=== PATIENT | male | born 1980 | race Caucasian/White ===

== ENCOUNTER 2017-12-12 19:22 | Emergency (ER) | payer MEDICAID, SELFPAY ==
[2017-12-12 19:28] VITALS: BP 125/75; PULSE 91; RESP 16; TEMP 36; O2SAT 96
--- NOTE | 2017-12-12 20:04 | DI.RAD_ITS ---
SYMPTOMS/DIAGNOSIS: S/P FALL, ? ACUTE FRACTURE LEFT WRIST: Three views. No priors. There is a sideplate and screws transfixing an old healed distal left radial fracture. No acute fracture or dislocation is seen. The orthopedic hardware appears well maintained. There are mild degenerative changes seen in the wrist. There is a well corticated osseous fragment seen at the tip of the ulnar styloid process likely reflecting an old injury. IMPRESSION: No acute fracture or dislocation.
--- NOTE | 2017-12-12 20:04 | DI.CT_ITS ---
SYMPTOMS/DIAGNOSIS: H/O LUMBAR HERNIATED DISC, RT LEG WEAKNESS CT SCAN OF THE LUMBAR SPINE: Multiple contiguous axial images of the lumbar spine were obtained. Sagittal and coronal reformatted images were evaluated on the [employer] workstation. At L 5 - S 1 there is a diffuse disc bulge present. There does appear to be a right paracentral disc herniation which may impinge upon the right S 1 nerve root. No significant central spinal canal stenosis is seen. No neural foraminal stenosis is present. At L 4 - 5 there is a broad based disc bulge but no focal disc herniation, central spinal canal or neural foraminal stenosis is seen. No nerve root impingement is identified. At L 2 - 3 and L 1 - 2 there is no focal disc herniation, central spinal canal or neural foraminal stenosis. No acute fracture or subluxation is identified. The soft tissues are unremarkable. IMPRESSION: Right paracentral disc protrusion at L 5 - S 1 which may impinge upon the right S 1 nerve root. MRI should be considered for further evaluation.
--- NOTE | 2017-12-12 20:08 | W.ED.GENAD ---
Discharge Plan Disposition Patient Disposition: HOME Condition: Stable Discharge Details Chief Complaint: Orthopedic Clinical Impression: Chronic back pain, Fall, Leg pain, Left wrist pain Primary Care Provider: Robert Wheatley ED Provider: Ileana Powell Home Meds and New Rx's Prescriptions: Continue citalopram 40 MG tablet 40 mg PO DAILY AM RF: 0 cyclobenzaprine 10 MG tablet 10 mg PO TID RF: 0 clonazepam 0.5 MG tablet 0.5 mg PO BID RF: 0 meloxicam 7.5 MG tablet 7.5 mg PO DAILY RF: 0 mirtazapine [Remeron] 15 MG tablet 15 mg PO HS RF: 0 Melatonin/Pyridoxine [Melatonin 5 mg Tablet] 1 EACH Tablet 2 ea PO HS RF: 0 cyproheptadine 4 mg Tablet 2 tab PO HS RF: 0 oxycodone-acetaminophen 10-325 mg Tablet 1 tab PO DIRECTED RF: 0 Discharge Data Discharge Date/Time-TO BE ENTERED AT DEPARTURE: 12/12/17 21:24 Medical Decision Making <Ileana Powell DO - Last Filed: 12/28/17 10:18> 37-year-old male with a history of lumbar disc herniation with L4-5 [address]cectomy [address] Koffi Adame at [facility] who presents with a history of right leg giving out while standing while urinating at home prior to arrival. He is c/o R knee/leg pain and R foot numbness and L wrist pain. He has chronic lower back pain and and L thigh pain and chronic urinary hesistancy. No other acute cauda equina symptoms. Vitals within normal limits. Chest and abdomen nontender. Normal exam. He has tenderness to palpation of midline and bilateral lumbar paraspinal region. No focal deficits of lower extremities. No pelvis instability or pain in hips with range of motion. Straight leg raise negative bilaterally. Neurovascular intact bilateral lower extremities. Discussed with patient that as he has no acute focal deficits on exam tonight, his right leg may have given out due to pain or weakness but may not be due to an acute neurological concern. Offered a CT lumbar spine for evaluation but discussed that this is not as diagnostic as MRI for disc herniation and patient would like this done. He is also requesting a left wrist x-ray. We will also obtain a bladder scan, give a dose of Toradol and Valium. 1999 --he declined dose of toradol. 2013 --case endorsed to Dr. Truong to follow-up on imaging results and patient response to meds. Bladder scan 157. <Jared Truong MD - Last Filed: 12/12/17 21:20> Received signout from Dr. Powell. Please see her note regarding details of presentation, exam, plan of care. Patient CTs images showed disc bulge at L5-S1. He did not have any fractures on wrist radiograph. He complained to me primarily of ongoing left wrist pain, that he had missed his evening medications, and that he had plans to follow-up with neurosurgery for ongoing right low back pain. Is ambulatory with no complaints of weakness or change to urination. Did not have a significant postvoid residual. Given his evening medications. We will also allow him to have a left wrist splint. He is stable for outpatient management. HPI <Ileana Powell DO - Last Filed: 12/28/17 10:18> General Mode of arrival: ambulatory. Date/Time Provider Initiated Documentation: 12/12/17 19:25. Limitations to Documentation: no limitations. Information obtained by: patient. HPI Narrative: Patient is a 37-year-old male who is 1 year s/p L4-5 discectomy and 4 months s/p L wrist ORIF s/p fx who presents with a complaint of right leg giving out while standing urinating resulting in fall into tub now with with right leg pain extending from knee down to leg and right foot numbness. He states he also hit his L wrist and L ribs when he fell into the tub and has wrist pain but no rib pain. Patient admits to a history of chronic lower back pain and L4-5 disc herniation for which he had the L4-5 discectomy at [facility] 1 year ago. Patient states he was recommended to have a lumbar fusion. Patient states he has chronic midline lumbar and right-sided lower back pain with extension into left thigh but normally does not have right leg pain or weakness or numbness. He denies chronic left leg weakness or numbness. He states he occasionally has difficulty urinating with hesistancy but this is not new since before his back surgery. He denies fever, nausea, vomiting, chest pain, shortness of breath, abdominal pain, urinary or fecal incontinence, saddle anesthesia. Patient states he takes 10 mg of oxycodone prn daily and last took this at 2 PM today. Patient states he called his PCP at [facility] and Dr. Bustos was phone operator who advised that he come to the emergency department for evaluation and if needed for transfer to [facility] for MRI. Past medical history: Kidney stones Surgical history: Appendectomy, bilateral ulnar nerve transfer, small bowel obstruction 1982, left wrist ORIF 2017 Social history: Smokes tobacco, denies alcohol or drugs Medications: See list Allergies: Penicillin, tramadol, prednisone, codeine PCP: Dr. Bustos Related Data Home Medications Medication Instructions Recorded Confirmed Melatonin/Pyridoxine [Melatonin 5 2 ea PO HS 08/14/16 12/12/17 mg Tablet] citalopram 40 mg PO DAILY AM 08/14/16 12/12/17 clonazepam 0.5 mg PO BID 08/14/16 12/12/17 cyclobenzaprine 10 mg PO TID 08/14/16 12/12/17 meloxicam 7.5 mg PO DAILY 08/14/16 12/12/17 mirtazapine [Remeron] 15 mg PO HS 08/14/16 12/12/17 cyproheptadine 2 tab PO HS 12/12/17 oxycodone-acetaminophen 1 tab PO DIRECTED 12/12/17 12/12/17 Allergies Allergy/AdvReac Type Severity Reaction Status Date / Time Penicillins Allergy Severe Anaphylaxsi Unverified 12/12/17 19:38 s prednisone AdvReac Intermediate Diarrhea Unverified 12/12/17 19:38 tramadol AdvReac Intermediate Other (See Unverified 12/12/17 19:38 Comment) codeine AdvReac Mild Hives Unverified 12/12/17 19:38 General Stated Complaint: Orthopedic ADELFO: 3 Review of Systems <Ileana Powell DO - Last Filed: 12/28/17 10:18> Constitutional Reports as per HPI, Denies chills and Denies fever(s) Eyes Denies blurry vision ENT Denies dizziness, Denies sore throat and Denies throat swelling Cardiovascular Denies chest pain and Denies dyspnea Respiratory Denies dyspnea Gastrointestinal Denies abdominal pain, Denies diarrhea and Denies vomiting Genitourinary Denies hematuria and Denies dysuria Musculoskeletal Reports back pain and Reports numbness Integumentary/Breasts Denies lesions and Denies rash Neurologic Denies dizziness, Reports focal weakness, Reports numbness, Reports radicular pain and Reports paresthesias Allergic/Immunologic Denies throat swelling Exam <Ileana Powell, - Last Filed: 12/28/17 10:18> Const General: cooperative and healthy appearing Orientation: alert and awake [facility] Head: normal to inspection Ears: hearing grossly normal bilaterally and external ears normal Face and sinus: normal facial exam Eyes General: appearance normal, both eyes and all related structures Eyelids: eyelids normal EOM: EOM intact bilaterally Neck Neck: normal visual inspection Lymphatic: no lymphadenopathy noted Chest Chest: normal inspection of the chest, normal palpation of entire chest wall, no crepitus, no masses and no tenderness Resp Effort & Inspection: normal respiratory effort and able to speak in complete sentences Auscultation: clear to auscultation bilaterally Cardio Rate: regular rate Rhythm: regular rhythm GI Inspection: normal to inspection Palpation: soft, not firm, no guarding, no hepatosplenomegaly, no masses and nontender Auscultation: normal bowel sounds Penis: normal penis Scrotum: scrotum normal Testes: no testicular swelling and no testicular tenderness Back/Spine/Pelvis Thoracic/Lumbar Spine: paraspinal tenderness, lumbar spinal tenderness and other (Well-healed midline lumbar spine scar, no evidence of infection or acute trauma) Skin General skin exam: no rashes or lesions noted Neuro General: alert and awake Cognition: normal cognition Speech: speech normal Gait: antalgic Motor: muscle tone normal throughout and strength 5/5 throughout Sensory Exam: no sensory deficits noted DTR's: Rt Patellar: 1+, Lt Patellar: 1+, Rt Ankle: 1+ and Lt Ankle: 1+ Plantar Reflexes: Equivocal: bilateral Other: Straight leg raise negative bilaterally Extrem General: normal to inspection, full ROM and normal capillary refill Left upper extremity: wrist (Well-healed scar in midline distal forearm extending longitudinally from wrist to mid forearm with tenderness to palpation volar aspect of wrist. No left snuffbox tenderness. Pain in left wrist with range of motion. ) Right lower extremity: full ROM; no cyanosis and no edema Left lower extremity: full ROM; no cyanosis and no edema Psych Appearance: grossly normal Mental Status: mental status grossly normal Speech and Movement: speech and movement normal Affect: normal affect Thought Process: normal Course <Ileana Powell DO - Last Filed: 12/28/17 10:18> Vital Signs Temperature 96.8 F L 12/12/17 19:28 Pulse 91 H 12/12/17 19:28 Respiratory Rate 16 12/12/17 19:28 Blood Pressure 125/75 12/12/17 19:28 Pulse Oximetry 96 12/12/17 19:28 Temperature 96.8 F L 12/12/17 19:28 Temperature Source Temporal Artery Scan 12/12/17 19:28 Pulse 91 H 12/12/17 19:28 Respiratory Rate 16 12/12/17 19:28 Respiratory Effort 12/12/17 19:28 Blood Pressure 125/75 12/12/17 19:28 Pulse Oximetry 96 12/12/17 19:28 Oxygen Delivery Method Room Air 12/12/17 19:28 Oxygen Flow Rate 0 12/12/17 19:28 Pain Level 9 12/12/17 19:36 Sign Out <Ileana Powell DO - Last Filed: 12/28/17 10:18> Sign Out Data: Sign Out Comment: Care endorsed to Dr. Truong to follow-up on imaging and patient response to meds. Last updated by Ileana Powell DO at 12/12/17 20:24
[2017-12-12] MEDS: Diazepam 5 MG TAB PO (20:15)
--- NOTE | 2017-12-12 20:24 | ED.GENADUL_ITS ---
Discharge Plan Disposition Patient Disposition: HOME Condition: Stable Discharge Details Chief Complaint: Orthopedic Clinical Impression: Chronic back pain, Fall, Leg pain, Left wrist pain Primary Care Provider: Robert Wheatley ED Provider: Ileana Powell Home Meds and New Rx's Prescriptions: Continue citalopram 40 MG tablet 40 mg PO DAILY AM RF: 0 cyclobenzaprine 10 MG tablet 10 mg PO TID RF: 0 clonazepam 0.5 MG tablet 0.5 mg PO BID RF: 0 meloxicam 7.5 MG tablet 7.5 mg PO DAILY RF: 0 mirtazapine [Remeron] 15 MG tablet 15 mg PO HS RF: 0 Melatonin/Pyridoxine [Melatonin 5 mg Tablet] 1 EACH Tablet 2 ea PO HS RF: 0 cyproheptadine 4 mg Tablet 2 tab PO HS RF: 0 oxycodone-acetaminophen 10-325 mg Tablet 1 tab PO DIRECTED RF: 0 Discharge Data Discharge Date/Time-TO BE ENTERED AT DEPARTURE: 12/12/17 21:24 Medical Decision Making <Ileana Powell DO - Last Filed: 12/28/17 10:18> 37-year-old male with a history of lumbar disc herniation with L4-5 discectomy [address] Koffi Adame at [facility] who presents with a history of right leg giving out while standing while urinating at home prior to arrival. He is c/o R knee/leg pain and R foot numbness and L wrist pain. He has chronic lower back pain and and L thigh pain and chronic urinary hesistancy. No other acute cauda equina symptoms. Vitals within normal limits. Chest and abdomen nontender. Normal exam. He has tenderness to palpation of midline and bilateral lumbar paraspinal region. No focal deficits of lower extremities. No pelvis instability or pain in hips with range of motion. Straight leg raise negative bilaterally. Neurovascular intact bilateral lower extremities. Discussed with patient that as he has no acute focal deficits on exam tonight, his right leg may have given out due to pain or weakness but may not be due to an acute neurological concern. Offered a CT lumbar spine for evaluation but discussed that this is not as diagnostic as MRI for disc herniation and patient would like this done. He is also requesting a left wrist x-ray. We will also obtain a bladder scan, give a dose of Toradol and Valium. 1999 --he declined dose of toradol. 2013 --case endorsed to Dr. Truong to follow-up on imaging results and patient response to meds. Bladder scan 157. <Jared Truong MD - Last Filed: 12/12/17 21:20> Received signout from Dr. Powell. Please see her note regarding details of presentation, exam, plan of care. Patient CTs images showed disc bulge at L5- S1. He did not have any fractures on wrist radiograph. He complained to me primarily of ongoing left wrist pain, that he had missed his evening medications , and that he had plans to follow-up with neurosurgery for ongoing right low back pain. Is ambulatory with no complaints of weakness or change to urination. Did not have a significant postvoid residual. Given his evening medications. We will also allow him to have a left wrist splint. He is stable for outpatient management. HPI <Ileana Powell DO - Last Filed: 12/28/17 10:18> General Mode of arrival: ambulatory . Date/Time Provider Initiated Documentation: 12/12/17 19:25 . Limitations to Documentation: no limitations . Information obtained by: patient . HPI Narrative: Patient is a 37-year-old male who is 1 year s/p L4-5 discectomy and 4 months s/p L wrist ORIF s/p fx who presents with a complaint of right leg giving out while standing urinating resulting in fall into tub now with with right leg pain extending from knee down to leg and right foot numbness. He states he also hit his L wrist and L ribs when he fell into the tub and has wrist pain but no rib pain. Patient admits to a history of chronic lower back pain and L4-5 disc herniation for which he had the L4-5 discectomy at [facility] 1 year ago. Patient states he was recommended to have a lumbar fusion. Patient states he has chronic midline lumbar and right-sided lower back pain with extension into left thigh but normally does not have right leg pain or weakness or numbness. He denies chronic left leg weakness or numbness. He states he occasionally has difficulty urinating with hesistancy but this is not new since before his back surgery. He denies fever, nausea, vomiting, chest pain, shortness of breath, abdominal pain, urinary or fecal incontinence, saddle anesthesia. Patient states he takes 10 mg of oxycodone prn daily and last took this at 2 PM today. Patient states he called his PCP at [facility] and Dr. Bustos was pavilion cutter who advised that he come to the emergency department for evaluation and if needed for transfer to [facility] for MRI. Past medical history: Kidney stones Surgical history: Appendectomy, bilateral ulnar nerve transfer, small bowel obstruction 1982, left wrist ORIF 2017 Social history: Smokes tobacco, denies alcohol or drugs Medications: See list Allergies: Penicillin, tramadol, prednisone, codeine PCP: Dr. Bustos Related Data Home Medications Medication Instructions Recorded Confirmed Melatonin/Pyridoxine [Melatonin 5 2 ea PO HS 08/14/16 12/12/17 mg Tablet] citalopram 40 mg PO DAILY AM 08/14/16 12/12/17 clonazepam 0.5 mg PO BID 08/14/16 12/12/17 cyclobenzaprine 10 mg PO TID 08/14/16 12/12/17 meloxicam 7.5 mg PO DAILY 08/14/16 12/12/17 mirtazapine [Remeron] 15 mg PO HS 08/14/16 12/12/17 cyproheptadine 2 tab PO HS 12/12/17 oxycodone-acetaminophen 1 tab PO DIRECTED 12/12/17 12/12/17 Allergies Allergy/AdvReac Type Severity Reaction Status Date / Time Penicillins Allergy Severe Anaphylaxsi Unverified 12/12/17 19:38 s prednisone AdvReac Intermediate Diarrhea Unverified 12/12/17 19:38 tramadol AdvReac Intermediate Other (See Unverified 12/12/17 19:38 Comment) codeine AdvReac Mild Hives Unverified 12/12/17 19:38 General Stated Complaint: Orthopedic ADELFO: 3 Review of Systems <Ileana Powell DO - Last Filed: 12/28/17 10:18> Constitutional Reports as per HPI, Denies chills and Denies fever(s) Eyes Denies blurry vision ENT Denies dizziness, Denies sore throat and Denies throat swelling Cardiovascular Denies chest pain and Denies dyspnea Respiratory Denies dyspnea Gastrointestinal Denies abdominal pain, Denies diarrhea and Denies vomiting Genitourinary Denies hematuria and Denies dysuria Musculoskeletal Reports back pain and Reports numbness Integumentary/Breasts Denies lesions and Denies rash Neurologic Denies dizziness, Reports focal weakness, Reports numbness, Reports radicular pain and Reports paresthesias Allergic/Immunologic Denies throat swelling Exam <Ileana Powell, - Last Filed: 12/28/17 10:18> Const General: cooperative and healthy appearing Orientation: alert and awake [facility] Head: normal to inspection Ears: hearing grossly normal bilaterally and external ears normal Face and sinus: normal facial exam Eyes General: appearance normal, both eyes and all related structures Eyelids: eyelids normal EOM: EOM intact bilaterally Neck Neck: normal visual inspection Lymphatic: no lymphadenopathy noted Chest Chest: normal inspection of the chest, normal palpation of entire chest wall, no crepitus, no masses and no tenderness Resp Effort & Inspection: normal respiratory effort and able to speak in complete sentences Auscultation: clear to auscultation bilaterally Cardio Rate: regular rate Rhythm: regular rhythm GI Inspection: normal to inspection Palpation: soft, not firm, no guarding, no hepatosplenomegaly, no masses and nontender Auscultation: normal bowel sounds Penis: normal penis Scrotum: scrotum normal Testes: no testicular swelling and no testicular tenderness Back/Spine/Pelvis Thoracic/Lumbar Spine: paraspinal tenderness, lumbar spinal tenderness and other (Well-healed midline lumbar spine scar, no evidence of infection or acute trauma) Skin General skin exam: no rashes or lesions noted Neuro General: alert and awake Cognition: normal cognition Speech: speech normal Gait: antalgic Motor: muscle tone normal throughout and strength 5/5 throughout Sensory Exam: no sensory deficits noted DTR's: Rt Patellar: 1+, Lt Patellar: 1+, Rt Ankle: 1+ and Lt Ankle: 1+ Plantar Reflexes: Equivocal: bilateral Other: Straight leg raise negative bilaterally Extrem General: normal to inspection, full ROM and normal capillary refill Left upper extremity: wrist (Well-healed scar in midline distal forearm extending longitudinally from wrist to mid forearm with tenderness to palpation volar aspect of wrist. No left snuffbox tenderness. Pain in left wrist with range of motion. ) Right lower extremity: full ROM; no cyanosis and no edema Left lower extremity: full ROM; no cyanosis and no edema Psych Appearance: grossly normal Mental Status: mental status grossly normal Speech and Movement: speech and movement normal Affect: normal affect Thought Process: normal Course <Ileana Powell DO - Last Filed: 12/28/17 10:18> Vital Signs Temperature 96.8 F L 12/12/17 19:28 Pulse 91 H 12/12/17 19:28 Respiratory Rate 16 12/12/17 19:28 Blood Pressure 125/75 12/12/17 19:28 Pulse Oximetry 96 12/12/17 19:28 Temperature 96.8 F L 12/12/17 19:28 Temperature Source Temporal Artery Scan 12/12/17 19:28 Pulse 91 H 12/12/17 19:28 Respiratory Rate 16 12/12/17 19:28 Respiratory Effort 12/12/17 19:28 Blood Pressure 125/75 12/12/17 19:28 Pulse Oximetry 96 12/12/17 19:28 Oxygen Delivery Method Room Air 12/12/17 19:28 Oxygen Flow Rate 0 12/12/17 19:28 Pain Level 9 12/12/17 19:36 Sign Out <Ileana Powell DO - Last Filed: 12/28/17 10:18> Sign Out Data: Sign Out Comment: Care endorsed to Dr. Truong to follow-up on imaging and patient response to meds. Last updated by Ileana Powell DO at 12/12/17 20:24
--- NOTE | 2017-12-12 21:02 | DI.VRAD_ITS ---
EXAM: XR Left Wrist Complete, 3 or more Views EXAM DATE/TIME: 12/12/2017 8:45 PM CLINICAL HISTORY: 37 years old, male; Pain; Wrist; Left; Prior surgery; Patient HX: Fall onto l wrist; Additional info: R/O acute fracture TECHNIQUE: XR Left wrist 3 or more views. COMPARISON: No relevant prior studies available. FINDINGS: Bones/joints: Old internally fixed healed fracture deformity of the distal radius. No instrumentation failure. Mild degenerative arthrosis of the distal radioulnar, radiocarpal and triscaphe joints. Old ununited fracture at the tip of the ulnar styloid. No acute fracture. Soft tissues: Normal. IMPRESSION: No acute fracture. Dictated and Authenticated by: Guilherme Carranza MD. Ordering:YAZMIN REBOLLEDO MD
--- NOTE | 2017-12-12 21:09 | DI.VRAD_ITS ---
EXAM: CT Lumbar Spine Without Intravenous Contrast EXAM DATE/TIME: 12/12/2017 8:08 PM CLINICAL HISTORY: 37 years old, male; Pain and signs and symptoms; Weakness; Low back pain; Patient HX: R leg weakness; Additional info: H/o lumbar herniated disc TECHNIQUE: Axial computed tomography images of the lumbar spine without intravenous contrast. COMPARISON: No relevant prior studies available. FINDINGS: Vertebrae: No acute fracture. Normal alignment. Soft tissues: Unremarkable. DISCS/SPINAL CANAL/NEURAL FORAMINA: L1-L2: No disc herniation. No spinal stenosis. No neural foraminal narrowing. L2-L3: No disc herniation. No spinal stenosis. No neural foraminal narrowing. L3-L4: No disc herniation. No spinal stenosis. No neural foraminal narrowing. L4-L5: Mild posterior broad-based disc bulge. No nerve root impingement or spinal stenosis identified. L5-S1: Posterior broad-based disc protrusion, asymmetric to the right. This may affect the right S1 nerve root. Correlate clinically. Consider MRI assessment. IMPRESSION: Posterior broad-based disc protrusion, asymmetric to the right at L5-S1 which may affect the right S1 nerve root. Dictated and Authenticated by: Guilherme Carrnaza MD. Ordering:YAZMIN REBOLLEDO MD
[2017-12-12] MEDS: Acetaminophen 325 MG TAB 650 MG PO (21:36)
[2017-12-12] MEDS: oxyCODONE 5 MG TAB (21:36)
[2017-12-12 21:38] VITALS: BP 121/73; PULSE 80; RESP 17; TEMP 36; O2SAT 96
== END 2017-12-12 21:24 | disposition home or self-care (01) ==
PROVIDERS: Emergency Provider Emergency Medicine; PCP Family Medicine
DX: M54.5 Low back pain (principal); G89.29 Other chronic pain; M79.604 Pain in right leg; M25.532 Pain in left wrist; W18.2XXA Fall in (into) shower or empty bathtub, initial encounter
CPT/HCPCS: 29125; 99284; 72131; 73110; 99285; L3908

== ENCOUNTER 2024-10-26 09:17 | Emergency (ER) | payer MEDICAID, SELFPAY ==
[2024-10-26 09:22] VITALS: BP 135/89; PULSE 85; RESP 16; TEMP 36.6; O2SAT 95
--- NOTE | 2024-10-26 10:14 | DI.RAD_ITS ---
Exam(s) XR KNEE RT 3V AP,LAT,WIL EXAM: XR KNEE RT 3V AP,LAT,WIL CLINICAL HISTORY: lateral knee pain after twisting. TECHNIQUE: 2D digital imaging was performed. COMPARISON: No exams were available for comparison FINDINGS: 3 views No evidence acute fracture nor prominent joint effusion. There may be a small amount of increased joint fluid. There arm minimal if any significant degenerative changes. No osteochondral defects. Incidentally noted is an area of abnormal lucency in the proximal tibial epiphysis extending into the metaphysis, this measuring 3 by 3.2 cm. Does not have typical appearance of a degenerative subarticular cysts. There is no surrounding sclerosis. There are no significant osseous findings in the femoral condyles. IMPRESSION: No fracture evident. Incidental note of a possibly concerning 30 x 32 mm lucency in the proximal tibia as described above. Possibly significant bone lesion. Recommend further follow-up imaging of this incidental finding in the proximal tibia. DATA REPOSITORY: RADIATION DOSE DELIVERED:
[2024-10-26] MEDS: Acetaminophen 500 MG TAB 1000 MG PO (10:26)
[2024-10-26] MEDS: Ibuprofen 800 MG TAB PO (10:26)
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
== END 2024-10-26 11:33 | disposition home or self-care (01) ==
PROVIDERS: Emergency Provider Student in an Organized Health Care Education/Training Program; PCP Family Medicine
DX: S83.91XA Sprain of unspecified site of right knee, initial encounter (principal); X58.XXXA Exposure to other specified factors, initial encounter
CPT/HCPCS: 99283 ×2; 73562

== ENCOUNTER 2024-11-09 09:43 | Outpatient (CLI) | payer MEDICAID, SELFPAY ==
--- NOTE | 2024-11-09 09:19 | DI.RAD_ITS ---
Exam(s) XR TIB/FIB RT EXAM: XR TIB/FIB RT CLINICAL HISTORY: F/U BONE CYST. TECHNIQUE: 2D digital imaging was performed. Two views. COMPARISON: CR XR KNEE RT 3V AP,LAT,WIL from 10/26/2024 FINDINGS: BONES: No acute fracture is present. The area of lucency visible in the proximal tibia, at the level of the tibial spines and extending into the metaphysis, unchanged from previous exam. This is not definitely visible on the lateral view. It does not have a typical appearance of a bone cyst. Visualized portion of knee and ankle joints are unremarkable. SOFT TISSUE: edema in the lower leg, greatest around the malleoli. IMPRESSION: Stable area of ill-defined area of lucency in the proximal tibia. MRI recommended for further evaluation. No additional abnormalities are seen more distally in the tibia and fibula. DATA REPOSITORY: RADIATION DOSE DELIVERED:
== END 2024-11-09 09:44 | disposition home or self-care (01) ==
LOC: DIORS 09:43
PROVIDERS: PCP Family Medicine; Visit Provider Student in an Organized Health Care Education/Training Program
DX: S83.61XA Sprain of the superior tibiofibular joint and ligament, right knee, initial encounter
CPT/HCPCS: 73590

== ENCOUNTER 2024-11-28 02:37 | Outpatient (CLI) | payer MEDICAID, SELFPAY ==
--- NOTE | 2024-11-28 12:52 | DI.MRI_ITS ---
Exam(s) MR LOWER JOINT RT WO EXAM: MR LOWER JOINT RT WO CLINICAL HISTORY: PAIN, INTERNAL DERANGEMENT RT KNEE, M23.91. TECHNIQUE: Multiplanar multisequence MRI was performed. COMPARISON: CR XR KNEE RT 3V AP,LAT,WIL from 10/26/2024 FINDINGS: BONES: There is a fracture of the lateral tibial plateau anteriorly with no significant depression. There is a large area of edema in the marrow of the lateral tibial plateau. JOINTS: Articular cartilage is unremarkable. There is a small amount of fluid in the joint space. TENDONS: Extensor mechanism: Unremarkable. Medial retinaculum: Unremarkable. Lateral retinaculum: Unremarkable. Popliteus: Unremarkable. MUSCLES: Unremarkable. MENISCI: The medial meniscus is unremarkable. The lateral meniscus is unremarkable. SOFT TISSUES: There is mild edema seen in the soft tissues particularly anterior to the tibia. LIGAMENTS: Anterior Cruciate: Unremarkable. Posterior Cruciate: Unremarkable. Medial Collateral:Unremarkable. Lateral Collateral: Unremarkable. OTHER: IMPRESSION: 1. There is a in nondepressed fracture of the anterior aspect of the lateral tibial plateau. 2. There is no evidence of a meniscal or ligament tear. 3. There is mild edema in the soft tissues particularly anterior to the tibia. DATA REPOSITORY:
== END 2024-11-28 02:57 ==
LOC: DI 02:37
PROVIDERS: PCP Family Medicine; Visit Provider Student in an Organized Health Care Education/Training Program
DX: S82.124A Nondisplaced fracture of lateral condyle of right tibia, initial encounter for closed fracture (principal); X58.XXXA Exposure to other specified factors, initial encounter
CPT/HCPCS: 73721